=== PATIENT | male | born 1965 | race Caucasian/White ===

== ENCOUNTER 2017-07-02 16:49 | Emergency (ER) | payer BC ==
[2017-07-02 17:04] VITALS: TEMP 97.1
[2017-07-02] MEDS ORDERED: MORPHINE SULFATE 10 MG/ML SOL IV ONE (17:52)
[2017-07-02] MEDS ORDERED: SODIUM CHLORIDE 0.9% 1000 ML SOL IV SCH (18:00)
[2017-07-02 18:06] LABS: BASOPHILS % (AUTO) 1 % (0-3); EOSINOPHILS % (AUTO) 2 % (0-9); HEMATOCRIT 47 % (39-53); MEAN CORPUSCULAR HGB CONC 35.7 gm/dl (32.0-36.0); MEAN CORPUSCULAR VOLUME 88 fL (80-100); MONOCYTES % (AUTO) 8.7 % (0-12); NEUTROPHILS % (AUTO) 64.6 % (37-80)
[2017-07-02 18:19] LABS: CALCIUM 9.2 mg/dl (8.5-10.1); POTASSIUM 4.8 mMol/L (3.5-5.1)
[2017-07-02 18:40] VITALS: BP 133/76; PULSE 74; RESP 20; O2SAT 97
== END 2017-07-02 19:05 | disposition home or self-care (01) ==
LOC: ED 16:49
DX: K76.0 Fatty (change of) liver, not elsewhere classified (principal)
CPT/HCPCS: 99283 ×3; 80053; 82150; 83690; 85025; 85610; Q9967; 36415; 74177; 99282